=== PATIENT | female | born 1995 | race Hispanic/Latino ===

== ENCOUNTER 2024-09-08 17:06 | Emergency (ER) | payer BC, SELFPAY ==
[2024-09-08 17:06] VITALS: BP 115/81; PULSE 79; RESP 16; TEMP 36.9; O2SAT 100; BMI 28.0
--- NOTE | 2024-09-08 17:41 | US_ITS ---
PROCEDURE: TRANSVAGINAL W/PREG US 09/08/2024 REASON FOR EXAM: PAIN TECHNIQUE: Transvaginal ultrasound imaging with color Doppler interrogation. COMPARISON: None. FINDINGS: Number of Gestational Sacs: 1 Uterine Abnormalities: Maternal uterus is unremarkable. The cervical os is closed. Ovaries / Adnexa: Both maternal ovaries are visualized and unremarkable. Physiologic right corpus luteum. No ovarian mass. DIMENSIONS: Parameter Measurement / EGA Bala Rump Length: 0.3 cm/6 weeks 1 day Gestational Sac: 2.0 cm/6 weeks 6 days Yolk Sac: 0.2 cm The heart rate is 123 beats per minute. ESTIMATED GESTATIONAL AGE: By Ultrasound: 6 weeks 4 days By LMP: 6 weeks 5 days ESTIMATED DATE OF DELIVERY: By Ultrasound: 05/02/2025 By LMP: 04/29/2025 US/Transvaginal w/Preg US IMPRESSION: UNREMARKABLE FIRST TRIMESTER ULTRASOUND. Reading Location: [id number]
[2024-09-08 17:51] LABS: Bacteria 0 SEEN /hpf (None Seen); Mucous, Urine 0 SEEN /hpf (<or=2+)
--- NOTE | 2024-09-08 18:05 | ED.VIS.FEGU ---
HPI HPI - Female History of Present Illness Chief Complaint: Vag Bld, Preg Informant: patient and spouse/S.O. Narrative Narrative: G1, P0 approximately 7 weeks gestation by dates here with spouse evaluation with vaginal spotting increasing today. This past Tuesday note faint pink color. Cramping today. Is appointment with her [facility] team this coming Tuesday for the first time. Denies alcohol tobacco or illicit drug use. Denies trauma. Denies any recent intercourse. Reports her blood type is A-. Denies nausea or vomiting. PFSH PFSH Medical History Iron deficiency anemia Home Medications ?Medication ?Instructions ?Recorded ?Last Taken ?Type omega 3 350 mg-dha 235 mg-epa 90 1 cap PO DAILY 09/08/24 Unknown History mg-fish oil 597 mg capsule,delay rel ([place]-3) vit no.95-ferrous 1 tab PO DAILY 09/08/24 Unknown History fumarate 28 mg-folic acid 800 mcg tablet () Allergy/AdvReac Type Severity Reaction Status Date / Time No Known Allergies Allergy Verified 09/08/24 17:06 Social History Smoking Status: Never smoker ROS ROS ED Constitutional Constitutional ED: Denies fever(s) Cardiovascular Cardiovascular: Denies chest pain Respiratory/Chest Respiratory/Chest: Denies cough Gastrointestinal Gastrointestinal: Denies diarrhea or vomiting Genitourinary Genitourinary ED: Reports other Details: Vaginal spotting, pelvic cramping Musculoskeletal Musculoskeletal: Denies none Integumentary Denies rash or wounds Neurologic Neurologic: Denies weakness EXAM Physical Exam Const Vital Signs: 09/08/24 17:06 09/08/24 19:28 Temperature 98.4 F 97.6 F L Temperature Source Oral Pulse Rate 79 87 Respiratory Rate 16 18 Blood Pressure 115/81 H 112/60 Blood Pressure Mean 92 77 Pulse Ox 100 99 Oxygen Delivery Method Room Air Positive well nourished and well developed General Appearance ED: well developed HEENT normocephalic and atraumatic Eyes General Eye ED: Yes normal appearance of both eyes Neck full ROM Resp normal respiratory effort and normal air movement Cardio regular rate and regular rhythm GI soft to palpation Extremity normal to inspection and full ROM Neuro oriented x3 Skin no rashes or lesions noted and no wounds MDM MDM MDM Narrative Medical decision making narrative: Interventions / MDM: Differential diagnosis: First trimester , threatened miscarriage Diagnosis considered but do not suspect: N/A My EKG interpretation: N/A Imaging independently reviewed and interpreted by myself: Pelvic ultrasound: 6 weeks 1 day gestational with heart tones 125 per radiology. External documents reviewed: N/A Test considered but not ordered:N/A ED course: Patient vaginal bleeding first trimester . She is having cramping. No formal ultrasounds been obtained. Labs ordered hCG ABO Rh. Pelvic ultrasound for further evaluation. 1904: Ultrasound with gestational 6 weeks 1 day. after 125. Hemoglobin 13.4. Urine negative for infection. hCG quant of 40,916. Awaiting ABO Rh results however she reports she is a negative. I discussed with covering [facility] OB Dr. Chaidez, does agree with first trimester Rh- patients does not need RhoGAM. Therefore do not need to wait for results. Discussed pelvic rest with the patient. They will keep their follow-up on Tuesday. Re-evaluation: stable Disposition discussed with patient/family/significant other: Patient and significant other Case discussed with consulting clinician: [facility] OB This note was generated with [employer] dictation software. It may contain incorrect words, spelling, and punctuation that were not noted in checking the note before signing. Lab Data Attestation: I reviewed the patient's lab results. Labs: Laboratory Results - last 24 hr 09/08/24 09/08/24 17:25 18:45 WBC 12.1 H RBC 4.81 Hgb 13.4 Hct 39.7 MCV 82.5 MCH 27.9 MCHC 33.8 RDW Std Deviation 50.0 H RDW Coeff of Esdras 16.3 H Plt Count 238 MPV 11.7 Immature Gran % (Auto) 0.300 Neut % (Auto) 68.0 Lymph % (Auto) 23.0 [place] % (Auto) 7.4 Eos % (Auto) 0.9 Baso % (Auto) 0.4 Absolute Neuts (auto) 8.2 H Absolute Lymphs (auto) 2.79 Nucleated RBC % 0 HCG, Quant 95694 H Urine Color Straw Urine Clarity Clear Urine pH 6.0 Ur Specific [place] 1.010 Urine Protein Negative Urine Glucose (UA) Normal Urine Ketones Negative Urine Occult Blood Negative Urine Nitrite Negative Urine Bilirubin Negative Urine Urobilinogen Normal Ur Leukocyte Esterase Negative Urine RBC 0-5 SEEN Urine WBC 0-5 SEEN Ur Squamous Epith Cells 0-5 SEEN Urine Bacteria 0 SEEN Urine Mucus 0 SEEN Blood Type A NEGATIVE Radiography Diagnostic Testing: Clinical Impression(s) from Imaging Studies Obstetrics Ultrasound 09/08/24 17:41 IMPRESSION: UNREMARKABLE FIRST TRIMESTER ULTRASOUND. Reading [facility] Discharge Plan Triage Chief Complaint: Vag Bld, Preg ED Provider: Steve Hudson Dx/Rx/DC Orders Clinical Impression: Miscarriage, threatened, early , First trimester Instructions: 1st Trimester, Miscarriage Threatened Prescriptions: No Action PNV cmb#95-ferrous fumarate-FA [] 28 mg iron- 800 mcg tablet 1 tab PO DAILY [place]-3 350 mg-235 mg- 90 mg-597 mg capsule,delayed release(DR/EC) 1 cap PO DAILY Primary Care Provider: Care Physician,No Primary Referrals: Celestina Quintanilla CNM [Med Staff - Adv Practice Prof] - Keep Jayy appointment Care Physician,No Primary [Primary Care Provider] - Activity Restrictions/Additional Instructions: hCG quant 40,916. Urine negative for infection. Your ultrasound 6 weeks 1 day gestational with heart tones 125. Discussed with Dr. Chaidez. Pelvic rest as discussed. Keep your follow-up on Tuesday with Celestina. Print Language: Estonian Disposition Disposition: Home, Self Care Discharge Date/Time: 09/08/24 19:28
[2024-09-08 18:32] LABS: Absolute Lymphocyte Count 2.79 X10^3/uL (0.83-4.51); Absolute Neutrophil Count 8.2 X10^3/uL (2.0-7.7); Basophil# 0.05 X10^3/uL; Basophil% 0.4 % (0-1); Eosinophil# 0.11 X10^3/uL; Eosinophils% 0.9 % (0-5); Hematocrit 39.7 % (37-47); Hemoglobin 13.4 g/dL (12.0-15.0); Lymphocyte # 2.79 X10^3/ul (0.83-4.51); Mean Corp Hgb Conc 33.8 g/dL (32-36); Mean Corpuscular Hgb 27.9 pg (27.0-32.0); Mean Corpuscular Volume 82.5 fL (81-99); Mean Platelet Vol. 11.7 fl (6.2-12.0); Monocyte% 7.4 % (0-10); NRBC Flagged by Analyzer 0 % (0-5); Neutrophil # 8.22 X10^3/uL (2.7-7.7); Platelet Count 238 K/mm3 (150-450); RBC Distribution Width CV 16.3 % (11.6-14.6); Red Blood Count 4.81 M/mm3 (4.2-5.4); White Blood Count 12.1 K/mm3 (4.4-11.0)
[2024-09-08 18:42] LABS: Glucose, Dipstick Normal (Normal); Ketone-Dipstick Negative (Negative); Leukocyte Esterase-Dipstick Negative /ul (Negative); Nitrite-Dipstick Negative (Negative); Occult Blood-Urine Negative /ul (Negative); Protein-Dipstick Negative (Negative); Urine Bilirubin Dipstick Negative (Negative); Urine Clarity Clear (Clear); Urine Urobilinogen Normal (Normal)
[2024-09-08 18:43] LABS: Color, Urine Straw (Yellow)
[2024-09-08 18:52] LABS: hCG Titer Quant., Serum 40916 mIU/mL (<9 non-preg)
[2024-09-08 19:28] VITALS: BP 112/60; PULSE 87; RESP 18; TEMP 36.4; O2SAT 99
[2024-09-08 19:32] LABS: Red Blood Cells-Urine 0-5 SEEN /hpf (0-5); Squamous Epithelial Cells - UA 0-5 SEEN /hpf (5-10); White Blood Cells 0-5 SEEN /hpf (0-5)
== END 2024-09-08 19:28 | disposition home or self-care (01) ==
PROVIDERS: Emergency Provider Emergency Medicine; Visit Provider Emergency Medicine
DX: O20.0 Threatened abortion (principal); Z3A.01 Less than 8 weeks gestation of pregnancy; D50.9 Iron deficiency anemia, unspecified; O99.011 Anemia complicating pregnancy, first trimester
CPT/HCPCS: 76817; 81001; 84702; 85025; 86900; 86901; 99283; A4216

== ENCOUNTER 2024-10-03 18:26 | Emergency (ER) | payer BC, SELFPAY ==
[2024-10-03 18:27] VITALS: BP 125/72; PULSE 95; RESP 18; TEMP 36.3; O2SAT 100; BMI 28.8
--- NOTE | 2024-10-03 18:45 | US_ITS ---
PROCEDURE: TRANSVAGINAL W/PREG US 10/03/2024 REASON FOR EXAM: 10 WEEKS WITH MILD VAGINAL BLEEDING. TECHNIQUE: TRANSVAGINAL W/PREG US COMPARISON: None FINDINGS Intrauterine gestational sac measuring 4.1 cm with yolk sac measuring 0.5 cm and CRL measuring 3.5 cm. Findings correspond to sonographic gestational age of 9 weeks and 6 days. heart rate of 174 beats per minute. There is irregular, nonvascular anechoic structure adjacent to the gestational sac measuring 2.3 x 0.4 x 1.2 cm, which may reflect a subchorionic hemorrhage. Estimated delivery date of 05/02/2025. Uterus measures 10.9 x 9.6 x 7.7 cm. No fibroids are noted. Cervix is closed. Minimal fluid within cul-de-sac. Right ovary measures 3.6 x 2.6 x 2.9 cm and left ovary measures 3.8 x 2.2 x 1.5 cm. There is a 2.3 cm cyst within the right ovary. Normal vascular flow within bilateral ovaries. US/Transvaginal w/Preg US IMPRESSION: Intrauterine with sonographic age corresponding to 9 weeks and 6 days . There is irregular, nonvascular anechoic structure adjacent to the gestational sac measuring 2.3 x 0.4 x 1.2 cm, which may reflect a subchorionic hemorrhage. Reading Location: [id number]
--- NOTE | 2024-10-03 18:45 | US_ITS ---
PROCEDURE: TRANSVAGINAL W/PREG US 10/03/2024 REASON FOR EXAM: 10 WEEKS WITH MILD VAGINAL BLEEDING. TECHNIQUE: TRANSVAGINAL W/PREG US COMPARISON: None FINDINGS Intrauterine gestational sac measuring 4.1 cm with yolk sac measuring 0.5 cm and CRL measuring 3.5 cm. Findings correspond to sonographic gestational age of 9 weeks and 6 days. heart rate of 174 beats per minute. There is irregular, nonvascular anechoic structure adjacent to the gestational sac measuring 2.3 x 0.4 x 1.2 cm, which may reflect a subchorionic hemorrhage. Estimated delivery date of 05/02/2025. Uterus measures 10.9 x 9.6 x 7.7 cm. No fibroids are noted. Cervix is closed. Minimal fluid within cul-de-sac. Right ovary measures 3.6 x 2.6 x 2.9 cm and left ovary measures 3.8 x 2.2 x 1.5 cm. There is a 2.3 cm cyst within the right ovary. Normal vascular flow within bilateral ovaries. US/Transvaginal w/Preg US IMPRESSION: Intrauterine with sonographic age corresponding to 9 weeks and 6 days . There is irregular, nonvascular anechoic structure adjacent to the gestational sac measuring 2.3 x 0.4 x 1.2 cm, which may reflect a subchorionic hemorrhage. Reading Location: [id number]
--- NOTE | 2024-10-03 18:45 | ED.VIS.FEGU ---
HPI HPI - Female History of Present Illness Chief Complaint: Vag Bld, Preg Informant: patient and spouse/S.O. Pain Pain: Positive for Pelvic Pain Quality: Positive for Cramping Current Severity: Mild Maximum Severity: Mild Bleeding Issue: Positive for Vaginal bleeding Onset: Today Current Severity: Spotting Associated Symptoms Associated Symptoms: Negative for Dysuria, Frequency, Urgency, Hematuria, Missed Period or Irregular Period Test: Positive Sexually: Positive for Active P: 0 Ab: 0 Narrative Narrative: 28-year-old female no signal past medical history. G1, P0 Ab0. Proximately 10 weeks and 3 days . Due date is 04/29/2025. Patient sees a [facility] [facility] group. Earlier in the at about 6 weeks she had a threatened miscarriage. Evitex been going well. Today she had very minimal spotting. And intermittent mild cramping. She has not passed any tissue. She denies any urinary symptoms. No fever. Prior similar symptoms: Yes Recent Illness/Hospitalization: No PFSH PFSH Medical History Iron deficiency anemia Home Medications ?Medication ?Instructions ?Recorded ?Last Taken ?Type omega 3 350 mg-dha 235 mg-epa 90 1 cap PO DAILY 09/08/24 Unknown History mg-fish oil 597 mg capsule,delay rel ([place]-3) vit no.95-ferrous 1 tab PO DAILY 09/08/24 Unknown History fumarate 28 mg-folic acid 800 mcg tablet () Allergy/AdvReac Type Severity Reaction Status Date / Time No Known Allergies Allergy Verified 10/03/24 18:27 Social History Smoking Status: Never smoker ROS ROS ED ROS Narrative No recent illness other than nausea vomiting associated with . Constitutional Constitutional ED: Denies chills Eyes Eyes: Denies blurry vision ENT ENT ED: Denies ear pain Cardiovascular Cardiovascular: Denies chest pain Respiratory/Chest Respiratory/Chest: Denies cough or dyspnea Gastrointestinal Gastrointestinal: Reports nausea and vomiting; Denies abdominal pain, constipation, diarrhea or melena Genitourinary Genitourinary ED: Denies dysuria or hematuria Musculoskeletal Musculoskeletal: Denies arthralgias, myalgias or neck pain Integumentary Denies abscess or Abrasions Neurologic Neurologic: Denies headache(s) Psychiatric Psychiatric: Denies anxiety or depression Endocrine Endocrinology: Denies heat intolerance Hematologic/Lymphatic Hematologic/Lymphatic: Denies easy bleeding, easy bruising or lymphadenopathy Allergic/Immunologic Allergic/Immunologic ED: Denies mouth swelling, tongue swelling or urticaria EXAM Physical Exam Narrative Exam Narrative: Well-appearing 28-year-old female. Vital signs stable afebrile. No distress. Accompanied by her . H EENT exam pupils round react light. Moist pink membranes. Neck nontender JVD. Lungs clear to auscultation bilaterally. Heart regular rhythm rate about 90 no murmur. Abdomen soft, nontender nondistended normal bowel sounds without peritoneal signs. Gravid nontender uterus. Moving all 4 extremities. Nontender no edema. Normal strength. Normal range of motion. Neurologically she is awake alert. Answer questions following commands. No focal motor deficits. Const Vital Signs: 10/03/24 18:27 10/03/24 20:00 Temperature 97.3 F L Temperature Source Temporal Pulse Rate 95 63 Respiratory Rate 18 16 Blood Pressure 125/72 H 105/58 L Blood Pressure Mean 89 73 Pulse Ox 100 99 Oxygen Delivery Method Room Air Room Air Positive well nourished and well developed; Negative for cachectic, contractures or unkempt General Appearance ED: well developed and NAD; Negative for unkempt, cachectic, contractures or pallor Nutritional Appearance: Negative for cachectic HEENT Reports moist mucous membranes Eyes PERRL and EOMs intact bilaterally Neck no lymphadenopathy, supple and no JVD Chest Wall inspection of chest normal and palpation of chest normal Resp normal respiratory effort and clear to auscultation bilaterally Cardio regular rate, regular rhythm, S1 normal heart sound, no murmurs and no JVD GI normal to inspection, nondistended, normoactive bowel sounds, soft to palpation, non-tender, non-distended and no masses Auscultation: normoactive bowel sounds Palpation: Negative for tender, guarding, rigid or mass Back/Spine no CVA tenderness General Back: Negative for CVA tenderness Cervical Spine: Negative for cervical spine tenderness Thoracic Spine / Upper Back: Negative for thoracic spinal tenderness Lumbar Spine / Lower Back: Negative for lumbar spinal tenderness Extremity normal to inspection and full ROM General Extremety ED: Negative for edema or tenderness General Extremity: Negative for edema Neuro oriented x3 and CN's II-XII intact bilaterally Sensorium / Orientation: alert, oriented to person, oriented to place and oriented to time; Negative for confused, lethargic or stuporous Motor Exam: strength 5/5 throughout Psych mental status grossly normal Appearance: Negative for unkempt Skin no rashes or lesions noted and no wounds General Skin Exam: Negative for jaundice or pallor Rashes: No rashes noted MDM MDM MDM Narrative Medical decision making narrative: 28-year-old female 10 weeks 3 days blood type is A-. Had threatened miscarriage about 4 weeks ago. Minimal spotting today with minimal cramping. Exam is benign. Ultrasound being obtained. Repeat exam patient is doing well at 8:36 PM. Ultrasound was consistent with a single live IUP at 9 weeks and 6 days. Patient be discharged home. Threatened miscarriage. Follow-up with your [employer] [employer] [facility]. History & Record Review Discussion w/independent historian: Patient Additional record(s) reviewed:: Prior inpatient record, Prior outpatient record, Prior ED visit and Prior labs Radiography Diagnostic Testing: Clinical Impression(s) from Imaging Studies Obstetrics Ultrasound 10/03/24 18:45 IMPRESSION: Intrauterine with sonographic age corresponding to 9 weeks and 6 days. There is irregular, nonvascular anechoic structure adjacent to the gestational sac measuring 2.3 x 0.4 x 1.2 cm, which may reflect a subchorionic hemorrhage. Reading Location: [facility] Discharge Plan Triage Chief Complaint: Vag Bld, Preg ED Provider: Reagan Townsend Dx/Rx/DC Orders Clinical Impression: Miscarriage, threatened, early , First trimester Instructions: Miscarriage Threatened Prescriptions: No Action PNV cmb#95-ferrous fumarate-FA [] 28 mg iron- 800 mcg tablet 1 tab PO DAILY [place]-3 350 mg-235 mg- 90 mg-597 mg capsule,delayed release(DR/EC) 1 cap PO DAILY Primary Care Provider: Care Physician,No Primary Referrals: Gaye Berry MD [Med Staff - Active Staff] - 3-5 Days Care Physician,No Primary [Primary Care Provider] - Activity Restrictions/Additional Instructions: Plenty of fluids and rest. Tylenol for any cramping. Avoid heavy lifting. Avoid intercourse. Follow-up with your [employer]. Print Language: Swedish Disposition Disposition: Home, Self Care
[2024-10-03 20:00] VITALS: BP 105/58; PULSE 63; RESP 16; O2SAT 99
[2024-10-03 20:44] VITALS: BP 101/64; PULSE 60; RESP 16; TEMP 36.7; O2SAT 99
== END 2024-10-03 20:46 | disposition home or self-care (01) ==
PROVIDERS: Emergency Provider Emergency Medicine; Visit Provider Emergency Medicine
DX: O20.0 Threatened abortion (principal); Z3A.10 10 weeks gestation of pregnancy; D50.9 Iron deficiency anemia, unspecified; O99.011 Anemia complicating pregnancy, first trimester
CPT/HCPCS: 76817; 99282